=== PATIENT | female | born 1970 | race African-American/Black ===

== ENCOUNTER 2022-07-05 14:41 | Emergency (ER) | payer OTHER, SELFPAY ==
[2022-07-05 14:47] VITALS: BP 148/94; PULSE 88; RESP 20; TEMP 36.6; O2SAT 99; BMI 30.6
--- NOTE | 2022-07-05 15:10 | ED.GENADULT ---
HPI - General Adult General Time Seen by Provider: 15:11 Date Seen: 07/05/22 Chief complaint: Back Injury/Pain Stated complaint: Lower Back Pain Time Seen by Provider: 07/05/22 14:48 Source: patient and RN notes reviewed Mode of arrival: ambulatory Limitations: no limitations History of Present Illness HPI narrative: Lidia is a 51-year-old female coming in with severe low back pain pain going into her leg. She was given a muscle relaxant clinic about 2 weeks ago. 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 She has not been given any prednisone per report, did states she got x-rays in clinic about 2 weeks ago. She has an appointment for her primary care provider tomorrow, does have an appointment for an MRI coming up her what she told me. She has had no fevers or chills, no smoking ever. The pain is uncontrolled. She attempted to go to [facility] in sat for 3 hours in the pain became unbearable. She states she is numb and tingly through the whole leg. She states the pain hurts throughout the whole leg. States she cannot bear weight because it is painful. Has not had a bowel movement but is urinating fine. Denies any incontinence. Asked patient if she had been doing any ice, she stated her doctor told her to do heat. When she went to physical therapy they told her to do ice heat cycles and she has been doing so. She had gotten a muscle relaxant but is out of that now. Related Data Home Medications Medication Instructions Recorded Confirmed acetaminophen 325 mg tablet (Pain 325 mg PO Q6H PRN 07/05/22 07/05/22 Reliever (acetaminophen)) metformin 1,000 mg tablet 1,000 mg PO DAILY 07/05/22 07/05/22 Previous Rx's Medication Instructions Recorded cyclobenzaprine 10 mg tablet 10 mg PO TID PRN muscle spasm #20 07/05/22 tabs prednisone 20 mg tablet 20 mg PO BID #10 tabs 07/05/22 Allergies Allergy/AdvReac Type Severity Reaction Status Date / Time No Known Drug Allergies Allergy Verified 07/05/22 14:55 Review of Systems Status of ROS: Reports: 6 or more systems reviewed and unremarkable except as noted in History and below Exam Const: Vital Signs, click to edit/add: Vital Signs - 24 hr 07/05/22 14:47 Temperature 97.9 F Pulse Rate [Left P ulse Oximeter] 88 Respiratory Rate 20 Blood Pressure [Ri ght Upper Arm] 148/94 H Pulse Oximetry 99 Oxygen Delivery Me thod Room Air Patient is seen in exam room 1, lying on the bed moaning rub in her low back and buttock area on the left. She states pain is going down the left leg and the left leg just feels completely numb. Documenting provider has reviewed patient's vital signs: yes Extremity: Other: No edema of either lower extremity. Attempted DTRs at Achilles and patella as but do not get 1 on either side. Peripheral pulses are symmetric and normal. She has positive straight leg raise on either side with lifting the right leg causing pain in the left low back. I really can not even lift her left leg off the bed more than an inch or 2 before she starts complaining of pain. She states her left lower extremity is numb, feels numb when I touch her. She can start with normal strength but when I do strength testing quickly allows it to go away. She has quite good tone when I initially attempt to test at the toes and around the ankle but then will quickly let the strength testing go. When I pressure on this, she is able to maintain strength testing. Course Course Hospital Course: Will attempt to look up records, look at [place] prescribing website. Offered the patient 30 mg IM Toradol and she would like to proceed with this. Reevaluation(s) Reevaluation #1: Patient is feeling much better after the Toradol and is profusely thankful. Her x-ray from clinic dated 07/01/2022 report showed vertebral body heights maintained. Minimal retrolisthesis of L1 on L2 and L3 on L4. Mild disc height loss at L1-2. Remaining disc heights are maintained. Right upper quadrant cholecystectomy clips. Time: 15:58 Vital Signs Vital signs: Initial Vital Signs Temperature 97.9 F 07/05/22 14:47 Temperature Source Temporal Artery Scan 07/05/22 14:47 Pulse Rate 88 07/05/22 14:47 Respiratory Rate 20 07/05/22 14:47 Blood Pressure 148/94 H 07/05/22 14:47 Blood Pressure Mean 112 07/05/22 14:47 Blood Pressure Position Sitting 07/05/22 14:47 Pulse Oximetry 99 07/05/22 14:47 Oxygen Delivery Method 07/05/22 14:47 Vital Signs Temperature 97.9 F 07/05/22 14:47 Pulse Rate 88 07/05/22 14:47 Respiratory Rate 20 07/05/22 14:47 Blood Pressure 148/94 H 07/05/22 14:47 Pulse Oximetry 99 07/05/22 14:47 Oxygen Delivery Method 07/05/22 14:47 Temperature 97.9 F 07/05/22 14:47 Pulse Rate 88 07/05/22 14:47 Respiratory Rate 20 07/05/22 14:47 Blood Pressure 148/94 H 07/05/22 14:47 Pulse Oximetry 99 07/05/22 14:47 Oxygen Delivery Method 07/05/22 14:47 Critical Care Time Critical Care Time Critical Care Time: No Discharge Plan Discharge Clinical Impression: Lumbar radiculopathy Patient Disposition: Home, Self-Care Condition: Stable Instructions: Lumbar Radiculopathy (ED) Additional Instructions: Start prednisone and take with food to protect her stomach. Take Tylenol 1000 mg 3 times a day baseline for pain. Can use the cyclobenzaprine as needed for muscle spasm, be aware that this can be sedating. Keep your clinic appointment tomorrow. Would recommend keeping the MRI appointment you have scheduled as well. Do recommend continuing with physical therapy, get an extension from your primary care provider tomorrow if it is needed. Activity Level: Activity as Tolerated Prescriptions: New prednisone 20 mg tablet 20 mg PO BID Qty: 10 0RF cyclobenzaprine 10 mg tablet 10 mg PO TID PRN (Reason: muscle spasm) Qty: 20 0RF No Action acetaminophen [Pain Reliever (acetaminophen)] 325 mg tablet 325 mg PO Q6H PRN metformin 1,000 mg tablet 1,000 mg PO DAILY Stand Alone Forms: [employer] Info Instructions
[2022-07-05] MEDS: KETOROLAC 30 MG/ML inj IM (15:21)
[2022-07-05 16:18] VITALS: BP 132/82; PULSE 85; O2SAT 97
== END 2022-07-05 16:37 | disposition home or self-care (01) ==
PROVIDERS: Emergency Provider Family Medicine
DX: M54.16 Radiculopathy, lumbar region (principal)
CPT/HCPCS: 96372; 99283; J1885

== ENCOUNTER 2023-05-01 22:14 | Emergency (ER) | payer MEDICAID, SELFPAY ==
[2023-05-01 22:22] VITALS: BP 164/85; PULSE 95; RESP 20; TEMP 36.6; O2SAT 98; BMI 28.3
--- NOTE | 2023-05-01 22:24 | CRLHL7_ITS ---
For Patients: As a result of the Cures Act, medical imaging exams and procedure reports are released immediately into your electronic medical record. You may view this report before your referring provider. If you have questions, please contact your health care provider. INDICATION: Shut hand in door TECHNIQUE: Hand radiograph 2 views right COMPARISON: None FINDINGS: Bone: No acute fractures or aggressive bone lesions are identified. 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 Soft tissue: Unremarkable. No radiopaque foreign bodies are seen. IMPRESSION: 1. No acute osseous injuries or abnormalities are noted. Dictated by Jaquan Escobedo MD @ 05/01/2023 11:28:02 PM Dictated by: Jaquan Escobedo MD @ 05/01/2023 23:28:05 (Electronically Signed)
[2023-05-01] MEDS: OXYCODONE 5 MG TABLET PO (22:38)
--- NOTE | 2023-05-01 22:46 | ED_ITS ---
[facility] - General Adult General Time Seen by Provider: 22:46 Date Seen: 05/01/23 Chief complaint: Extremity Pain/Injury, Upper Stated complaint: R hand middle finger injury Time Seen by Provider: 05/01/23 22:26 Source: patient Mode of arrival: ambulatory Limitations: no limitations History of Present Illness [facility] narrative: Patient is a 52-year-old female presented emergency department for right middle finger pain. She states yesterday she slammed in a door in today the pain was getting worse. Has not taking anything for pain yet. She is able to move the finger and denies any numbness. Says most the pain is distal to the PIP. Denies injuries to this hand before. Denies any new injuries. States it was a regular interior door she closed it on. Denies any other injuries. Related Data Home Medications Medication Instructions Recorded Confirmed acetaminophen 325 mg tablet (Pain 325 mg PO Q6H PRN 07/05/22 07/05/22 Reliever (acetaminophen)) metformin 1,000 mg tablet 1,000 mg PO DAILY 07/05/22 07/05/22 Previous Rx's Medication Instructions Recorded cyclobenzaprine 10 mg tablet 10 mg PO TID PRN muscle spasm #20 07/05/22 tabs prednisone 20 mg tablet 20 mg PO BID #10 tabs 07/05/22 Allergies Allergy/AdvReac Type Severity Reaction Status Date / Time No Known Drug Allergies Allergy Verified 07/05/22 14:55 Review of Systems Narrative: Negative unless otherwise stated in the [facility] PFS Social History Smoking Status: Never smoker Do you use any of these nicotine containing products: None Exam Narrative: Exam Narrative: Const: Well-nourished, Well-developed, in moderate distress Eyes: PERRL, no conjunctival injection, and symmetrical lids ENMT: Atraumatic external nose and ears. Moist mucous membranes. MSK:Extremities w/o deformity, Normal Active ROM. Tenderness to palpation distal to PIP of the right middle finger Skin: Warm, Dry. No rashes or lesions. Neuro: Normal Muscle tone, No focal neurological deficits. Normal sensation to all her fingers Psych: Awake, Alert, & Oriented x3. Appropriate mood and affect. Const: Vital Signs, click to edit/add: Vital Signs - 24 hr 05/01/23 22:22 Temperature 97.8 F Pulse Rate [Pulse Oximeter] 95 Respiratory Rate 20 Blood Pressure [Ri ght Upper Arm] 164/85 H Pulse Oximetry 98 Oxygen Delivery Me thod Room Air Course Vital Signs Vital signs: Initial Vital Signs Temperature 97.8 F 05/01/23 22:22 Temperature Source Temporal Artery Scan 05/01/23 22:22 Pulse Rate 95 05/01/23 22:22 Respiratory Rate 20 05/01/23 22:22 Blood Pressure 164/85 H 05/01/23 22:22 Blood Pressure Mean 111 H 05/01/23 22:22 Pulse Oximetry 98 05/01/23 22:22 Oxygen Delivery Method Room Air 05/01/23 22:22 Vital Signs Temperature 97.8 F 05/01/23 22:22 Pulse Rate 95 05/01/23 22:22 Respiratory Rate 20 05/01/23 22:22 Blood Pressure 164/85 H 05/01/23 22:22 Pulse Oximetry 98 05/01/23 22:22 Oxygen Delivery Method Room Air 05/01/23 22:22 Temperature 97.8 F 05/01/23 22:22 Pulse Rate 95 05/01/23 22:22 Respiratory Rate 20 05/01/23 22:22 Blood Pressure 164/85 H 05/01/23 22:22 Pulse Oximetry 98 05/01/23 22:22 Oxygen Delivery Method Room Air 05/01/23 22:22 Medical Decision Making MDM Narrative Medical decision making narrative: Patient is a 52-year-old female presenting for right middle finger pain. She hurt it yesterday in a door. X-rays of the finger showed no acute abnormalities. Oxycodone given for pain which she says improved her symptoms. Talking to the daughter they did notice that the hematoma underneath the fingernail is larger compared to before. I did do a digital digital block and cauterized open a trephination but the blood appears to be coagulated and did not come out. I informed the patient her daughter to keep a close eye on this. They be discharged home with a feel oxycodone for pain relief. Imaging Data Chest x-ray: Radiologist's impression: INDICATION: Shut hand in door TECHNIQUE: Hand radiograph 2 views right COMPARISON: None FINDINGS: Bone: No acute fractures or aggressive bone lesions are identified. 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 Soft tissue: Unremarkable. No radiopaque foreign bodies are seen. IMPRESSION: 1. No acute osseous injuries or abnormalities are noted. Dictated by Jaquan Escobedo MD @ 05/01/2023 11:28:02 PM Discharge Plan Discharge Clinical Impression: Subungual hematoma Finger injury Qualifiers: Encounter type: initial encounter Laterality: right Qualified Code(s): S69.91XA - Unspecified injury of right wrist, hand and finger(s), initial encounter Patient Disposition: Home, Self-Care Condition: Stable Instructions: Subungual Hematoma (ED) Additional Instructions: Again use a topical Aleve or other topical nonsteroidal anti-inflammatory medications. Some of these are marketed as arthritis medicine. Try this before taking the oxycodone. He can strip picker your oxycodone from [facility]. Return for new worsening symptoms Prescriptions: No Action acetaminophen [Pain Reliever (acetaminophen)] 325 mg tablet 325 mg PO Q6H PRN metformin 1,000 mg tablet 1,000 mg PO DAILY prednisone 20 mg tablet 20 mg PO BID Qty: 10 0RF cyclobenzaprine 10 mg tablet 10 mg PO TID PRN (Reason: muscle spasm) Qty: 20 0RF Follow Up/Referrals: Provider,Not a Local [Primary Care Provider] - Stand Alone Forms: [employer] Info Instructions
--- NOTE | 2023-05-01 23:43 | ED.NURSE ---
Patient requesting three family members to come back into room. Patient notified that given small size of room, two visitors would be the maximum. Patient deciding to go sit out in waiting room to be with third daughter, going back and forth between room 4 and waiting room.
== END 2023-05-02 00:13 | disposition home or self-care (01) ==
PROVIDERS: Emergency Provider Student in an Organized Health Care Education/Training Program
DX: S60.031A Contusion of right middle finger without damage to nail, initial encounter (principal); V49.88XA Car occupant (driver) (passenger) injured in other specified transport accidents, initial encounter
CPT/HCPCS: 73120; 99282; 99283; A9270